=== PATIENT | female | born 1945 | race Caucasian/White ===

== ENCOUNTER → 2017-08-20 | Outpatient (CLI) | payer MEDICARE, MEDICAID ==
[~2017-08-20] MED LIST: ATEN50TA41 PO; LOSA25TA5 PO; MULT-208 PO; REGADENOSON 0.4 MG/5 ML SYRINGE ONE
== END | disposition home or self-care (01) ==
LOC: CFH 07:56
PROVIDERS: ATTEND Internal Medicine Cardiovascular Disease
DX: I08.1 Rheumatic disorders of both mitral and tricuspid valves (principal); I48.2 Chronic atrial fibrillation; I10 Essential (primary) hypertension
CPT/HCPCS: 78452; 93017; 93306; A9502; J2785

== ENCOUNTER 2018-02-24 12:21 | Inpatient (IN) | payer MEDICARE, MEDICAID ==
[~2018-02-24] VITALS: Ht 162.6 cm; Wt 92.0 kg
[~2018-02-24 12:21] MED LIST changes: -REGADENOSON 0.4 MG/5 ML SYRINGE ONE
[2018-02-24 13:20] LABS: BASOPHILS # (AUTO) 0.04 x10^3/uL (0-0.1); BASOPHILS % (AUTO) 1 % (0-1); EOSINOPHILS % (AUTO) 2 % (1-7); LYMPHOCYTES # (AUTO) 1.56 x10^3/uL (1-3.4); LYMPHOCYTES % (AUTO) 29 % (22-44); MD NO; MEAN CORPUSCULAR HEMOGLOBIN 31.8 pg (27.0-34.8); MEAN CORPUSCULAR HGB CONC 34.6 g/dL (32.4-35.8); MEAN CORPUSCULAR VOLUME 92.1 fL (80-100); MEAN PLATELET VOLUME 8.5 fL (7.4-10.4); MONOCYTES # (AUTO) 0.43 x10^3/uL (0.2-0.8); MONOCYTES % (AUTO) 8 % (2-9); NEUTROPHILS # (AUTO) 3.28 x10^3/uL (1.8-6.8); NEUTROPHILS % (AUTO) 61 % (42-75); PLATELET COUNT 117 x10^3/uL (130-400); RED BLOOD COUNT 4.45 x10^6/uL (3.82-5.3); RED CELL DISTRIBUTION WIDTH 14.2 % (9.6-15.2)
[2018-02-24] MEDS ORDERED: ASPIRIN 81 MG TABLET CHEW PO ONE (13:30)
[2018-02-24] MEDS ORDERED: RIVA10TA PO (13:31)
[2018-02-24 13:32] LABS: ALBUMIN 3.1 g/dL (3.4-5.0); ANION GAP 6 mmol/L (5-15); CALCIUM 8.3 mg/dL (8.5-10.1); CHLORIDE 109 mmol/L (98-107); CREATININE 0.88 mg/dL (0.55-1.02)
[2018-02-24] MEDS ORDERED: LOSA100T6 PO (13:32)
[2018-02-24] MEDS ORDERED: ATEN50TA41 PO (13:34)
[2018-02-24 13:36] LABS: TROPONIN I < 0.015 ng/mL (0.000-0.045)
[2018-02-24] MEDS ORDERED: ASPIRIN 81 MG TABLET CHEW ONE (13:45)
[2018-02-24 15:00] VITALS: BP 141/86
[2018-02-24] MEDS ORDERED: POLYETHYLENE GLYCOL 17 GM PACKET PO PRN (16:00)
[2018-02-24] MEDS ORDERED: DOCUSATE 100 MG CAPSULE PO PRN (16:00)
[2018-02-24] MEDS ORDERED: BISACODYL 10 MG SUPP PR PRN (16:00)
[2018-02-24] MEDS ORDERED: MORPHINE SULFATE 4 MG/ML, 1ML IVPush PRN (16:00)
[2018-02-24] MEDS ORDERED: LABETALOL 5MG/ML, 20ML IVPush PRN (16:00)
[2018-02-24] MEDS ORDERED: ONDANSETRON ODT 4 MG PO PRN (16:00)
[2018-02-24] MEDS ORDERED: NITROGLYCERIN 0.4 MG BOTTLE (25 TABS) SL PRN (16:00)
[2018-02-24] MEDS ORDERED: ENALAPRILAT 1.25 MG/ML, 2ML IVPush PRN (16:00)
[2018-02-24] MEDS ORDERED: ONDANSETRON 2MG/ML, 2ML IVPush PRN (16:00)
[2018-02-24] MEDS ORDERED: POTASSIUM CHLORIDE 20 MEQ TAB.ER.PRT PO ONE (17:00)
[2018-02-24 19:28] VITALS: BP 139/92
[2018-02-24 19:38] LABS: TROPONIN I < 0.015 ng/mL (0.000-0.045)
[2018-02-24] MEDS: ATENOLOL 50 MG TABLET PO SCH (21:08)
[2018-02-24] MEDS: RIVAROXABAN 10 MG TABLET PO SCH (21:08)
[2018-02-25 00:47] VITALS: BP 131/89
[2018-02-25 01:06] LABS: TROPONIN I < 0.015 ng/mL (0.000-0.045)
[2018-02-25 05:27] LABS: BASOPHILS # (AUTO) 0.02 x10^3/uL (0-0.1); BASOPHILS % (AUTO) 0 % (0-1); EOSINOPHILS # (AUTO) 0.14 x10^3/uL (0-0.4); EOSINOPHILS % (AUTO) 3 % (1-7); LYMPHOCYTES # (AUTO) 1.65 x10^3/uL (1-3.4); LYMPHOCYTES % (AUTO) 33 % (22-44); MD NO; MEAN CORPUSCULAR HEMOGLOBIN 31.7 pg (27.0-34.8); MEAN CORPUSCULAR HGB CONC 34.3 g/dL (32.4-35.8); MEAN CORPUSCULAR VOLUME 92.4 fL (80-100); MEAN PLATELET VOLUME 8.7 fL (7.4-10.4); MONOCYTES # (AUTO) 0.41 x10^3/uL (0.2-0.8); MONOCYTES % (AUTO) 8 % (2-9); NEUTROPHILS # (AUTO) 2.75 x10^3/uL (1.8-6.8); NEUTROPHILS % (AUTO) 55 % (42-75); PLATELET COUNT 111 x10^3/uL (130-400); RED BLOOD COUNT 4.24 x10^6/uL (3.82-5.3); RED CELL DISTRIBUTION WIDTH 14.2 % (9.6-15.2)
[2018-02-25 05:37] LABS: ANION GAP 6 mmol/L (5-15); CALCIUM 7.7 mg/dL (8.5-10.1); CHLORIDE 110 mmol/L (98-107)
[2018-02-25 05:49] LABS: CHOL/HDL RATIO 3.4; CHOLESTEROL, TOTAL 132 mg/dL (140-239); CREATININE 0.73 mg/dL (0.55-1.02); HDL CHOL % 30 % (28-40); HDL CHOLESTEROL (DIRECT) 39 mg/dL (40-60); LDL CHOLESTEROL,CALCULATED 79 mg/dL (54-169); TRIGLYCERIDES 68 mg/dL (50-200); VLDL CHOLESTEROL 14 mg/dL (0-25)
[2018-02-25] MEDS: ASPIRIN 325 MG TABLET EC PO SCH (06:30)
[2018-02-25] MEDS: ACETAMINOPHEN 325 MG TABLET PO PRN (06:32)
[2018-02-25 07:00] VITALS: BP 141/95
[2018-02-25] MEDS: LOSARTAN 50MG TABLET PO SCH (09:08)
[2018-02-25] MEDS: ATENOLOL 100 MG TABLET PO SCH (09:08)
[2018-02-25] MEDS: HYDROCHLOROTHIAZIDE 25 MG TABLET PO SCH (14:20)
[2018-02-25 16:25] VITALS: BP 137/99
[2018-02-25 18:56] VITALS: BP 144/96
[2018-02-25] MEDS: RIVAROXABAN 10 MG TABLET PO SCH (20:26)
[2018-02-25] MEDS: ATENOLOL 50 MG TABLET PO SCH (20:26)
[2018-02-26 00:44] VITALS: BP 140/96
[2018-02-26] MEDS: ACETAMINOPHEN 325 MG TABLET PO PRN (05:06)
[2018-02-26] MEDS: ASPIRIN 325 MG TABLET EC PO SCH (05:06)
[2018-02-26] MEDS: ATENOLOL 100 MG TABLET PO SCH (08:07)
[2018-02-26] MEDS: HYDROCHLOROTHIAZIDE 25 MG TABLET PO SCH (08:07)
[2018-02-26] MEDS: LOSARTAN 50MG TABLET PO SCH (08:08)
[2018-02-26] MEDS ORDERED: RIVA10TA PO (09:14)
[2018-02-26] MEDS ORDERED: HYDR25TA6 PO (09:14)
[2018-02-26] MEDS ORDERED: LOSA100T6 PO (09:14)
[2018-02-26] MEDS ORDERED: ATEN50TA41 PO ×2 (09:14)
== END 2018-02-26 10:50 | disposition home or self-care (01) | DRG 311 ==
LOC: ED 13:55 → 5SO 13:56 → ED 15:00 → 5SO 17:55 → DCLOUNGE 02-26 10:35
PROVIDERS: ADMIT Internal Medicine; ATTEND Internal Medicine
DX: I24.8 Other forms of acute ischemic heart disease (principal); D68.69 Other thrombophilia; I49.3 Ventricular premature depolarization; I08.1 Rheumatic disorders of both mitral and tricuspid valves; I48.2 Chronic atrial fibrillation; Z79.899 Other long term (current) drug therapy; D69.6 Thrombocytopenia, unspecified; I11.9 Hypertensive heart disease without heart failure; F41.9 Anxiety disorder, unspecified; Z66 Do not resuscitate; E87.6 Hypokalemia; I25.10 Atherosclerotic heart disease of native coronary artery without angina pectoris; E66.9 Obesity, unspecified; I27.20 Pulmonary hypertension, unspecified; Z90.710 Acquired absence of both cervix and uterus; Z79.01 Long term (current) use of anticoagulants; Z79.82 Long term (current) use of aspirin; Z80.1 Family history of malignant neoplasm of trachea, bronchus and lung; Z68.34 Body mass index [BMI] 34.0-34.9, adult
CPT/HCPCS: 36415; 71045; 80048; 80061; 82040; 83735; 83880; 84436; 84443; 84484; 85025; 85379; 93005; 93306; 99285

== ENCOUNTER → 2018-04-10 | Outpatient (CLI) | payer MEDICARE, MEDICAID ==
[~2018-04-10] MED LIST changes: +HYDR25TA6 PO; +LOSA100T7 PO; -LOSA25TA5 PO; +LOSA25TA6 PO; +RIVA10TA PO
== END | disposition home or self-care (01) ==
LOC: CFH 10:03
PROVIDERS: ATTEND Family Medicine
DX: Z12.31 Encounter for screening mammogram for malignant neoplasm of breast (principal); M81.0 Age-related osteoporosis without current pathological fracture
CPT/HCPCS: 77080; 77067

== ENCOUNTER → 2018-05-08 | Outpatient (CLI) | payer MEDICARE, MEDICAID | END | disposition home or self-care (01) | LOC: CFH 12:07 | PROVIDERS: ATTEND Family Medicine | DX: R92.8 Other abnormal and inconclusive findings on diagnostic imaging of breast (principal) | CPT/HCPCS: 77065 ==

== ENCOUNTER 2018-10-27 14:36 | Outpatient (CLI) | payer MEDICARE, MEDICAID ==
[~2018-10-27 14:36] MED LIST changes: +LOSA100T14 PO; -LOSA100T7 PO; +LOSA25TA25 PO; -LOSA25TA6 PO; -RIVA10TA PO; +RIVA10TA2 PO
== END 2018-10-27 23:59 | disposition home or self-care (01) ==
LOC: CFH 14:36
PROVIDERS: ATTEND Internal Medicine Cardiovascular Disease
DX: I08.8 Other rheumatic multiple valve diseases (principal); I11.9 Hypertensive heart disease without heart failure; I48.2 Chronic atrial fibrillation
CPT/HCPCS: 93306

== ENCOUNTER → 2018-11-01 | Outpatient (CLI) | payer MEDICARE, MEDICAID ==
[2018-11-01 11:58] LABS: ANION GAP 6 mmol/L (5-15); CALCIUM 8.4 mg/dL (8.5-10.1); CHLORIDE 102 mmol/L (98-107); CREATININE 1.04 mg/dL (0.55-1.02)
== END | disposition home or self-care (01) ==
LOC: LAB 11:25
PROVIDERS: ATTEND Internal Medicine Cardiovascular Disease
DX: I34.0 Nonrheumatic mitral (valve) insufficiency (principal); I48.2 Chronic atrial fibrillation; I10 Essential (primary) hypertension; Z79.01 Long term (current) use of anticoagulants
CPT/HCPCS: 36415; 80048

== ENCOUNTER → 2019-08-08 | Outpatient (CLI) | payer MEDICAID, MEDICARE ==
[2019-08-08 09:17] LABS: BASOPHILS # (AUTO) 0.01 x10^3/uL (0-0.1); BASOPHILS % (AUTO) 0 % (0-1); EOSINOPHILS % (AUTO) 2 % (1-7); LYMPHOCYTES # (AUTO) 1.59 x10^3/uL (1-3.4); LYMPHOCYTES % (AUTO) 34 % (22-44); MD NO; MEAN CORPUSCULAR HEMOGLOBIN 31.6 pg (27.0-34.8); MEAN CORPUSCULAR HGB CONC 33.4 g/dL (32.4-35.8); MEAN CORPUSCULAR VOLUME 94.8 fL (80-100); MONOCYTES % (AUTO) 6 % (2-9); NEUTROPHILS # (AUTO) 2.73 x10^3/uL (1.8-6.8); NEUTROPHILS % (AUTO) 58 % (42-75); PLATELET COUNT 138 x10^3/uL (130-400); RED CELL DISTRIBUTION WIDTH 13.2 % (9.6-15.2)
[2019-08-08 09:26] LABS: ALANINE AMINOTRANSFERASE 30 U/L (12-78); ALBUMIN 3.4 g/dL (3.4-5.0); ANION GAP 5 mmol/L (5-15); CALCIUM 8.5 mg/dL (8.5-10.1); CHLORIDE 109 mmol/L (98-107); CHOLESTEROL, TOTAL 174 mg/dL (140-239); CREATININE 1.16 mg/dL (0.55-1.02); TRIGLYCERIDES 75 mg/dL (50-200); VLDL CHOLESTEROL 15 mg/dL (0-25)
[2019-08-08 09:28] LABS: ALKALINE PHOSPHATASE 55 U/L (45-117); BILIRUBIN,TOTAL 0.8 mg/dL (0.2-1.0); CHOL/HDL RATIO 3.4; HDL CHOL % 29 % (28-40); HDL CHOLESTEROL (DIRECT) 51 mg/dL (40-60); LDL CHOLESTEROL,CALCULATED 108 mg/dL (54-169); LDL/HDL RATIO 2.1 (0.5-3.0); TOTAL PROTEIN 6.7 g/dL (6.4-8.2)
== END | disposition home or self-care (01) ==
LOC: LAB 08:42
PROVIDERS: ATTEND Family Medicine
DX: E78.00 Pure hypercholesterolemia, unspecified (principal); N28.9 Disorder of kidney and ureter, unspecified; R73.01 Impaired fasting glucose
CPT/HCPCS: 36415; 80053; 80061; 83036; 85025

== ENCOUNTER → 2020-03-24 | Outpatient (CLI) | payer MEDICARE, MEDICAID | END | disposition home or self-care (01) | LOC: CVU 06:14 | PROVIDERS: ATTEND Internal Medicine Cardiovascular Disease | DX: I08.1 Rheumatic disorders of both mitral and tricuspid valves (principal); I11.9 Hypertensive heart disease without heart failure | CPT/HCPCS: 93306 ==

== ENCOUNTER 2021-01-25 13:05 | Outpatient (CLI) | payer MEDICARE, MEDICAID | END 2021-01-25 23:59 | disposition home or self-care (01) | LOC: CFH 13:05 | PROVIDERS: ATTEND Student in an Organized Health Care Education/Training Program | DX: Z02.9 Encounter for administrative examinations, unspecified (principal) ==

== ENCOUNTER 2021-02-14 07:23 | Outpatient (CLI) | payer MEDICARE, MEDICAID ==
[2021-02-14] MEDS ORDERED: REGADENOSON 0.4 MG/5 ML SYRINGE ONE (07:52)
== END 2021-02-14 23:59 | disposition home or self-care (01) ==
LOC: CFH 07:23
PROVIDERS: ATTEND Internal Medicine Cardiovascular Disease
DX: I48.20 Chronic atrial fibrillation, unspecified (principal); I34.0 Nonrheumatic mitral (valve) insufficiency
CPT/HCPCS: 78452; 93017; A9502; J2785

== ENCOUNTER 2021-03-02 21:33 | Emergency (ER) | payer MEDICARE, MEDICAID ==
[~2021-03-02] VITALS: Ht 162.6 cm; Wt 78.0 kg
--- NOTE | 2021-03-02 21:42 | NUR ---
EKG DONE IN TRIAGE.
[2021-03-02] MEDS ORDERED: MORPHINE SULFATE 4 MG/ML, 1ML IVPush PRN (22:00)
[2021-03-02] MEDS ORDERED: ONDANSETRON 2MG/ML, 2ML IVPush ONE (22:00)
[2021-03-02] MEDS ORDERED: SODIUM CHLORIDE FLUSH 10ML SYR IVF ONE (22:00)
[2021-03-02] MEDS ORDERED: ONDANSETRON 2MG/ML, 2ML ONE (22:03)
[2021-03-02] MEDS ORDERED: MORPHINE SULFATE 4 MG/ML, 1ML ONE (22:04)
--- NOTE | 2021-03-02 22:13 | NUR ---
PT MEDICATED PER OCT 07 RIGHTS VERIFIED
--- NOTE | 2021-03-02 22:14 | NUR ---
XRAY/ LAB AT BEDSIDE
[2021-03-02 22:28] LABS: BASOPHILS % (AUTO) 0 % (0-1); EOSINOPHILS % (AUTO) 2 % (1-7); LYMPHOCYTES % (AUTO) 35 % (22-44); MEAN CORPUSCULAR HEMOGLOBIN 31.3 pg (27.0-34.8); MEAN CORPUSCULAR HGB CONC 34.5 g/dL (32.4-35.8); MEAN PLATELET VOLUME 8.5 fL (7.4-10.4); MONOCYTES % (AUTO) 8 % (2-9); NEUTROPHILS % (AUTO) 55 % (42-75); PLATELET COUNT 122 x10^3/uL (130-400); RED BLOOD COUNT 4.39 x10^6/uL (3.82-5.3); RED CELL DISTRIBUTION WIDTH 12.8 % (9.6-15.2)
[2021-03-02 22:33] LABS: ALANINE AMINOTRANSFERASE 24 U/L (12-78); ALBUMIN 3.1 g/dL (3.4-5.0); ANION GAP 6 mmol/L (5-15); CALCIUM 8.3 mg/dL (8.5-10.1); CHLORIDE 96 mmol/L (98-107); CREATININE 1.01 mg/dL (0.55-1.02)
[2021-03-02 22:38] LABS: ALKALINE PHOSPHATASE 48 U/L (45-117); BILIRUBIN,TOTAL 0.8 mg/dL (0.2-1.0); TOTAL PROTEIN 6.4 g/dL (6.4-8.2); TROPONIN I < 0.015 ng/mL (0.000-0.045)
[2021-03-02 23:18] VITALS: BP 111/65
--- NOTE | 2021-03-02 23:18 | NUR ---
PT STS PAIN IS BETTER AND IS READY TO GO HOME ERP UPDATED
[2021-03-02] MEDS ORDERED: METOCLOPRAMIDE 5 MG/ML, 2ML IVPush ONE (23:30)
[2021-03-02] MEDS ORDERED: METOCLOPRAMIDE 5 MG/ML, 2ML ONE (23:41)
[2021-03-02] MEDS ORDERED: OMNIPAQUE 350 MG/ML, 100ML BOTTLE ONE (23:55)
--- NOTE | 2021-03-03 00:31 | NUR ---
PT BACK FROM IMAGING AND DENIES NEEDS AT THIS TIME RESTING ON ADRIENNE GREEN
--- NOTE | 2021-03-03 00:54 | NUR ---
Patient/Caregiver given discharge instructions and they have confirmed that they understand the instructions. Patient ambulatory with steady gait. NAD, all questions answered appropriately, denies additional needs at this time. No personal belongings left in room after discharge.
== END 2021-03-03 01:03 | disposition home or self-care (01) ==
LOC: ED 22:03
DX: R07.89 Other chest pain (principal); R51.9 Headache, unspecified; R06.02 Shortness of breath; M54.9 Dorsalgia, unspecified; R11.0 Nausea; I48.91 Unspecified atrial fibrillation; I10 Essential (primary) hypertension
CPT/HCPCS: 36415; 71045; 71275; 74175; 80053; 84484; 85025; 85379; 93005; 96374; 96375; 99285; J2270; J2405; J2765; Q9967